=== PATIENT | female | born 1995 | race Caucasian/White ===

== ENCOUNTER 2018-11-25 21:37 | Emergency (ER) | payer OTHER ==
--- NOTE | 2018-11-25 23:24 | ER Document Report ---
ED General - General Chief Complaint: Low Back Pain Stated Complaint: BACK PAIN Time Seen by Provider: 11/25/18 23:23 Primary Care Provider: JUDE ALCAZAR MD [ACTIVE STAFF] - Follow up in 3-5 days (or your primary care. ) Notes: Patient is a 22-year-old female that presents to the emergency department for chief complaint of low back pain. Patient states that she went to the chiropractor today, had manipulation performed, and has been having pain in her right lower back, since then, she was told that should be sore but this pain is worse as a 6 out of 10 at this time, she did take muscle relaxer at home and it seems to be helping it to a degree. She denies any other injuries, no falls, or motor vehicle collisions recently. She has a history of chronic low back pain, does not currently take any chronic medications for it. She denies any numbness, tingling or weakness, saddle anesthesias, paresthesias, gait abnormality, or any bowel or bladder incontinence. Past Medical History: Chronic low back pain Past Surgical History: Oral surgery Social History: Denies tobacco, alcohol or drug use. Family History: Reviewed and noncontributory for presenting illness Allergies: Reviewed, see documented allergy list. REVIEW OF SYSTEMS: Other than noted above, the 12 point review of systems was reviewed with the patient and were negative, all pertinent findings are included in the HPI. PHYSICAL EXAMINATION: Vital signs reviewed, nursing noted reviewed. GENERAL: Well-appearing, well-nourished and in no acute distress. HEAD: Atraumatic, normocephalic. EYES: Eyes appear normal, sclera anicteric, conjunctiva are normal. ENT: Moist mucous membranes. NECK: Normal range of motion, supple without lymphadenopathy LUNGS: Breath sounds clear to auscultation bilaterally and equal. No wheezes rales or rhonchi. HEART: Regular rate and rhythm without murmurs EXTREMITIES: Nontender, good range of motion, no pitting or edema. Back: Mild tenderness to palpation, and fullness of the paraspinal muscles on the right around the level of L3 and L4, compared to the left, no tenderness to palpation of the sciatic area near the piriformis muscles, no midline tenderness in the thoracic or lumbar spine. Overall good range of motion of the thoracic and lumbar spine as well. NEUROLOGICAL: No focal neurological deficits. Moves all extremities spontaneously Motor and sensory grossly intact on exam. +5/5 strength in dorsiflexion, plantar flexion and extension of the hallucis longus tendon, sensation is grossly intact distally in all extremities. PSYCH: Normal mood, normal affect. SKIN: Warm, Dry, normal turgor, no rashes or lesions noted on exposed skin TRAVEL OUTSIDE OF THE [place] IN LAST 30 DAYS: No - Related Data Allergies/Adverse Reactions: No Known Allergies Allergy (Verified 11/26/18 00:21) Past Medical History - Social History Smoking Status: Never Smoker Family History: Reviewed & Not Pertinent Physical Exam - Vital signs Vitals: Temp Pulse BP Pulse Ox 98.8 F 87 132/57 H 99 11/25/18 22:50 11/25/18 22:50 11/25/18 22:50 11/25/18 22:50 Course - Re-evaluation Re-evalutation: Patient seen and examined, vital signs reviewed, patient appears well on exam, no immediate distress, no concerning signs for condition such as conus medullaris or cauda equina syndrome. I discussed the patient options to treat her back spasm particularly in the paraspinal muscles, including trigger point injection, with Solu-Medrol, and lidocaine, patient was agreeable to this proc edure, after explained the risks and benefits. Procedure: Trigger point injection Risks and benefits six-point to the patient, timeout called, right side and right patient, the skin was prepped in usual sterile fashion, and using a solution of 40 mg of Solu-Medrol, and 2 mL's of 2% lidocaine without epinephrine. Point of maximal tenderness was found in the patient's right lumbar paraspinal musculature, medication was injected into this region, and massaged afterwards, adhesive bandage applied and patient tolerated well. Patient was advised to take the prescribed medications Robaxin, naproxen, as needed and as prescribed, to follow-up with a primary care physician, she is advised if her symptoms worsen, or if she develops any neurological symptoms that she should return to the emergency department sooner. Patient was agreeable to this plan of care and discharged home. - Vital Signs Vital signs: Temp Pulse Resp BP Pulse Ox 98.0 F 70 17 119/59 L 99 11/26/18 01:08 11/26/18 01:08 11/26/18 01:08 11/26/18 01:08 11/26/18 01:08 - Laboratory Laboratory results interpreted by me: 11/26/18 00:08 Urine Protein 30 H Urine Blood MODERATE H Ur Leukocyte Esterase MODERATE H Discharge - Discharge Clinical Impression: Back pain Qualifiers: Back pain location: low back pain Chronicity: chronic Back pain laterality: right Sciatica presence: without sciatica Qualified Code(s): M54.5 - Low back pain Condition: Stable Disposition: HOME, SELF-CARE Instructions: Low Back Pain ([facility]) Additional Instructions: Please follow-up with your primary care physician, call for an appointment, I would avoid any strenuous activities, or chiropractic manipulation for at least the next 2 weeks. You can take the medications as prescribed to help with your back pain, if you are taking the Robaxin, do not drive or operate machinery while doing this. Prescriptions: Methocarbamol [Robaxin 500 mg Tablet] 500 mg PO Q6H PRN #15 tablet PRN Reason: back pain RX: Naproxen 500 mg PO BID PRN #30 tablet PRN Reason: back pain Referrals: JUDE ALCAZAR MD [ACTIVE STAFF] - Follow up in 3-5 days (or your primary care. )
[2018-11-25] MEDS ORDERED: METHYLPREDNISOLONE INJ 40 MG/1 ML SDV INJ ONE (23:44)
[2018-11-25] MEDS ORDERED: LIDOCAINE 2% INJ (20 MG/ML) 20 ML MDV INJ ONE (23:44)
[2018-11-26 00:35] LABS: APPEARANCE,URINE SLIGHTLY-CLOUDY; BILIRUBIN,URINE NEGATIVE (NEGATIVE); COLOR,URINE STRAW; GLUCOSE, URINE NEGATIVE (NEGATIVE); KETONES,URINE NEGATIVE (NEGATIVE); LEUKOCYTE ESTERASE,URINE MODERATE (NEGATIVE); NITRITE,URINE NEGATIVE (NEGATIVE); PROTEIN,URINE 30 mg/dL (NEGATIVE); URINE SPECIFIC GRAVITY 1.011; UROBILINOGEN,URINE NEGATIVE mg/dL (<2.0)
[2018-11-26 01:09] VITALS: BP 119/59
== END 2018-11-26 01:09 | disposition home or self-care (01) ==
LOC: ER 21:37
PROC: 3E0233Z Introduction of Anti-inflammatory into Muscle, Percutaneous Approach (ICD-10-PCS; principal; 2018-11-25)
PROC: 3E023BZ Introduction of Anesthetic Agent into Muscle, Percutaneous Approach (ICD-10-PCS; 2018-11-25)
DX: M54.5 Low back pain (principal); G89.29 Other chronic pain
CPT/HCPCS: 99283; 87086; 81025; 87088; 81001; 87186; 20552; J3490; J2920